=== PATIENT | male | born 1995 | race Caucasian/White ===

== ENCOUNTER 2022-06-24 20:20 | Emergency (ER) | payer SELFPAY ==
[~2022-06-24] VITALS: Ht 175.3 cm; Wt 73.0 kg
[2022-06-24] MEDS ORDERED: SODIUM CHLORIDE 0.9% 1,000 ML IV ONE ×2 (22:30)
[2022-06-24 22:57] LABS: BASOPHILS % 0.8 % (0.0-2.0); EOSINOPHILS % 3.8 % (0.0-5.0); HEMATOCRIT. 40.1 % (42.0-52.0); HEMOGLOBIN. 13.4 g/dL (14.0-18.0); LYMPHOCYTES % 38.8 % (20.0-50.0); MEAN CORPUSCULAR VOLUME 89.9 fL (80.0-94.0); MEAN PLATELET VOLUME 8.8 fl (7.4-10.4); NEUTROPHILS % 43.6 % (40.0-76.0); PLATELET 188 x1000/uL (130-400); RED BLOOD CELL COUNT 4.46 mill/uL (4.7-6.1)
[2022-06-24 23:05] LABS: CHLORIDE 103 mEq/L (98-107)
[2022-06-24 23:15] LABS: ETHANOL BLOOD < 10 mg/dL
[2022-06-25] MEDS ORDERED: POTASSIUM CHLORIDE 20MEQ TABLET SR PO ONE (00:30)
[2022-06-25 00:49] LABS: *AMPHETAMINES SCREEN URINE PRESUMTIVE POSITIVE (NEGATIVE); *BARBITURATES SCREEN URINE NEGATIVE (NEGATIVE); *BENZODIAZEPINES SCREEN URINE NEGATIVE (NEGATIVE); *COCAINE SCREEN URINE NEGATIVE (NEGATIVE); CANNABINOID URINE SCREEN PRESUMTIVE POSITIVE (NEGATIVE); METHADONE URINE SCREEN NEGATIVE (NEGATIVE); OPIATES URINE SCREEN NEGATIVE (NEGATIVE); PHENCYCLIDINE URINE SCREEN NEGATIVE (NEGATIVE)
[2022-06-25 09:33] VITALS: BP 107/70
== END 2022-06-25 11:18 | disposition home or self-care (01) ==
LOC: EDBD 20:20 → ER 20:20
DX: R41.82 Altered mental status, unspecified (principal)
CPT/HCPCS: 36415; 70450; 80053; 80305; 80307; 80320; 80329; 82962; 85025; 93005; 96360; 96361; 99285; J7030; Z7610; G0480